=== PATIENT | male | born 1970 | race Caucasian/White ===

== ENCOUNTER 2016-03-21 18:18 | Emergency (ER) | payer OTHER ==
[2016-03-21 19:09] VITALS: BP 136/84; PULSE 79; BMI 31.8
[2016-03-21] MEDS ORDERED: DIPHTHERIA AND TETANUS (ADULT) 0.5 ML SYR IM ONE (19:10)
--- NOTE | 2016-03-21 19:15 | EDPRACDOC ---
- General Information Home Medications: Home Medications Cephalexin Monohydrate [Keflex] 500 mg PO QID #28 cap 03/21/16 Allergies/Adverse Reactions: Allergies Allergy/AdvReac Type Severity Reaction Status Date / Time No Known Allergies Allergy Verified 03/21/16 19:00 - History of Present Illness Onset: [employer] HPI: Pt states was cutting tree branches and chain saw kicked back and cut l thigh. Tetanus unknown. Denies numbness, knee pain. Pt was wearing pants. - Location Left Lower Thigh Mechanism: Reports: Other (chain saw) - Tetanus Status Last Tetanus: No - Pain Pain Severity: Mild Bleeding: Reports: Controlled Associated Signs & Symptoms: Reports: Abrasion ED Past Medical History - History Reviewed Yes Nurses notes reviewed and agree except as marked - Social Medical History Smoking Status: Current some day smoker (cigars) ETOH: Social Substance Abuse: None EDM Review of Systems - Review of Systems Constitutional: No Symptoms Reported. negative: Fever, Chills, Weakness, Fatigue, Loss of Appetite Neurological: No Symptoms Reported. negative: Headache, Dizziness, Seizure, Numbness, Weakness, Speech Difficulty, Gait Difficulty Musculoskeletal: No Symptoms Reported. negative: Neck, Chestwall, Ribs, Back, Shoulder, Arm, Elbow, Forearm, Wrist, Hand, Pelvis, Hip, Femur, Knee, Leg, Ankle , Foot Integumentary: Wound Allergic/Immunologic: No Symptoms Reported. negative: Hives, Itching Hematologic: No Symptoms Reported. negative: Lymphadenopathy, Easy Bruising, Easy Bleeding Psychiatric: No Symptoms Reported. negative: Anxiety, Depression, Hallucinations, Insomnia, Suicidal - Physical Exam Constitutional: No apparent distress, Alert Oriented to: Time, Person, Place Last recorded Vital Signs: Last Vital Signs Temp Pulse 79 03/21/16 19:09 Resp 18 03/21/16 19:09 BP 136/84 03/21/16 19:09 Pulse Ox 95 03/21/16 19:09 Oxygen Pulse Oxygen Saturation 95 O2 Device Room Air Oxygen Flow Rate Fraction of Inspired Oxygen ( FIO2) - HEENT Head: Normal ( normocephalic) - Respiratory/Cardiovascular Respiratory: Normal - CTA (BBS clear to auscultation without adventitious sounds ) Cardiovascular: Normal (RRR without murmur, gallop or rub) - Musculoskeletal Extremities: Normal (Normal tone, Pulses 2+ No cyanosis or edema, FROM) - Integumentary Skin: Other (L distal medial thigh superifical laceration/abrasions. No closure required.) Lymphatics: Normal (no adenopathy) - Neurologic Memory Impaired: Normal Motor Function: Normal (Normal tone, Pulses 2+ No cyanosis or edema, FROM) Mood Description: Normal Perception: Normal - Differential Diagnosis Abrasion, Avulsion, Laceration Decision Time to Discharge: 19:13 - Departure Disposition: Home Condition: Good Final Diagnosis: Abrasion, left thigh, initial encounter Qualifiers: Encounter type: initial encounter Qualified Code(s): S70.312A - Abrasion, left thigh, initial encounter Instructions: Laceration (ED), Acute Wound Care (ED) Education/Counseling Given To: Patient Education/Counseling Given Regarding: Diagnosis, Treatment, Follow Up Referrals: None,No Provider [Primary Care Provider] - One Week Dimitri Cabral MD [Staff Physician] - One Week Prescriptions: New Cephalexin Monohydrate [Keflex] 500 mg PO QID #28 cap Additional Instructions: Return for worse or different symptoms.
== END 2016-03-21 20:00 | disposition home or self-care (01) ==
LOC: EDMC 18:18
DX: S70.312A Abrasion, left thigh, initial encounter (principal); W31.89XA Contact with other specified machinery, initial encounter; Y93.89 Activity, other specified; Z23 Encounter for immunization
CPT/HCPCS: 90471; 90714; 99282